=== PATIENT | female | born 1980 | race Caucasian/White ===

== ENCOUNTER 2019-02-27 06:02 | Day surgery (SDC) | payer MEDICAID ==
[2019-02-27 06:56] LABS: BASOPHILS # (AUTO) 0.1 10^3/uL (0.0-0.1); EOSINOPHILS # (AUTO) 0.1 10^3/uL (0.0-0.7); EOSINOPHILS % (AUTO) 2.7 %; HGB - HEMOGLOBIN 12.4 g/dL (12.0-16.0); LYMPHOCYTES % (AUTO) 41.8 %; MEAN CORPUSCULAR HEMOGLOBIN 30.8 pg (27.0-31.0); MEAN CORPUSCULAR HGB CONC 33.6 g/dL (32.0-36.0); MEAN CORPUSCULAR VOLUME 91.8 fL (81.0-99.0); MEAN PLATELET VOLUME 9.5 fL (7.9-10.8); MONOCYTES # (AUTO) 0.4 10^3/uL (0.0-1.0); MONOCYTES % (AUTO) 8.8 %; NEUTROPHILS # (AUTO) 2.2 10^3/uL (1.5-6.6); NEUTROPHILS % (AUTO) 45.5 %; PLT - PLATELET COUNT 285 10^3/uL (130-450); RED BLOOD COUNT 4.02 10^6/uL (4.20-5.40); WHITE BLOOD COUNT 4.9 x10^3/uL (4.8-10.8)
[2019-02-27] MEDS ORDERED: LACTATED RINGERS 1,000 ML IV ONE ×2 (06:57→08:52)
[2019-02-27 07:00] LABS: HCG UR QUAL NEGATIVE
--- NOTE | 2019-02-27 07:10 | ANESTHESIA ---
Pre-Anesthesia VS, & Labs - Diagnosis desires sterilization - Procedure bilateral salpingectomy Vital Signs: Temp Pulse Resp BP Pulse Ox 36.6 C 70 16 130/90 H 99 02/27/19 06:35 02/27/19 06:35 02/27/19 06:35 02/27/19 06:35 02/27/19 06:35 Height 5 ft 3 in Weight (kg) 90.8 kg - NPO >8 hours - Is Patient ?: No - Lab Results Current Lab Results: Laboratory Tests 02/27/19 06:52: WBC 4.9, RBC 4.02 L, Hgb 12.4, Hct 36.9 L, MCV 91.8, MCH 30.8, MCHC 33.6, RDW 12.0, Plt Count 285, MPV 9.5, Neut # (Auto) 2.2, Lymph # (Auto) 2.0, Converse # (Auto) 0.4, Eos # (Auto) 0.1, Baso # (Auto) 0.1, Absolute Nucleated RBC 0.00, Nucleated RBC % 0.0 Lab results reviewed: Yes Fish Bones: 02/27/19 06:52 Home Medications and Allergies Home Medications: Ambulatory Orders No Known Home Medications 02/19/19 No Known Home Medications 02/19/19 Allergies/Adverse Reactions: Allergies Allergy/AdvReac Type Severity Reaction Status Date / Time No Known Drug Allergies Allergy Verified 01/07/14 11:19 Anes History & Medical History - Anesthetic History Anesthesia Complications: reports: No previous complications Family history of Anesthesia Complications: Denies Family history of Malignant Hyperthermia: Denies - Medical History Cardiovascular: reports: None Pulmonary: reports: None Gastrointestinal: reports: None Urinary: reports: None Musculoskeletal: reports: None Endocrine/Autoimmune: reports: None Skin: reports: None Smoking Status: Never smoker - Surgical History Eyes Ears Nose Throat (EENT): Other Gynecologic: section Exam General: Alert, Oriented x3, Cooperative, No acute distress Dental: WNL Mouth Openin Fingerbreadth Neck Mobility: Normal Mallampati classification: I Thyromental Distance: 4-6 cm Respiratory: Lungs clear, Normal breath sounds, No respiratory distress, No accessory muscle use Cardiovascular: Regular rate, Normal S1, Normal S2, No murmurs Plan Anesthesia Type: General Consent for Procedure(s) Verified and Reviewed: Yes Code Status: Attempt Resuscitation ASA classification: 1-Healthy patient Is this case an emergency?: No
[2019-02-27] MEDS ORDERED: BUPIVACAINE 0.25%-EPI 1:200000 PF 30 ML VIAL ONE ×2 (07:18→08:37)
[2019-02-27] MEDS ORDERED: HYDROcod/ACETAM 5/325 MG TABLET PO PRN (09:07)
[2019-02-27] MEDS ORDERED: ONDANSETRON 4 MG/2 ML VIAL IVP PRN (09:07)
--- NOTE | 2019-02-27 09:46 | OPERATIVE REPORT ---
DATE OF SERVICE: 02/27/2019 Physician: Bao Delaney DO PREOPERATIVE DIAGNOSIS: Voluntary request for sterilization. POSTOPERATIVE DIAGNOSIS: Voluntary request for sterilization. PROCEDURE: Laparoscopic bilateral salpingectomy. SURGEON: Bao Delaney DO LIVESTOCK BREEDER: None. ANESTHESIA: General anesthetic. ESTIMATED BLOOD LOSS: 10 mL FINDINGS: Liver margins, gallbladder, bilateral fallopian tubes and ovaries were unremarkable. The right fallopian tube and left ample fallopian tube did have some minor adhesions associated with them, but were otherwise unremarkable. The uterus sounded to a depth of 11 cm, but was otherwise unremarkable on laparoscopic examination, as were the anterior and posterior cul-de-sacs. The appendix was normal in color; however, it was adhered to the right abdominal side wall. DESCRIPTION OF PROCEDURE: Patient was taken to the operative suite, placed on the surgical table in supine position. Under general anesthetic, she was prepped and draped in the usual fashion. A timeout took place. Once the timeout had been completed, a weighted speculum was placed in the vaginal vault and the cervix visualized. The bladder had been drained of approximately 400 mL of clear, yellow urine. The uterus then sounded to a depth of 11 cm and the cervix dilated to 8 mm. The HUMI was then advanced through the straightened endocervical canal and the balloon insufflated in the fundus. The single-tooth tenaculum was removed from the anterior lip of the cervix. No signs of bleeding were noted. Hemostasis followed. A weighted speculum was removed from the vaginal vault. The surgeon's gloves were changed. Attention was now placed to the abdomen. Prior to making any abdominal incisions, all areas were anesthetized with 0.25% Marcaine with epinephrine. A 5 mm incision was then made in the infraumbilical fold. Using the Optiport, the 5 mm port was then placed under direct laparoscopic vision as the abdominal wall was elevated. All layers were noted upon entry. The trocar was removed and CO2 applied. Good venous flow and good intra-abdominal pressure was noted. The abdomen was then insufflated with approximately 3 liters of CO2. The suprapubic port was then placed under direct laparoscopic visualization. This, again, was another 5 mm port. A third port was placed about 2 cm cephalad to the anterior iliac spine on the left. Again, this was done under direct laparoscopic visualization and a 5 mm port was used. The probe was then placed and the above findings noted. Laparoscopic photographic documentation took place. The left fallopian tube was then grasped at its fimbriated end and elevated. This was dissected free from the mesosalpinx, using the LigaSure device. This was dissected to the level of the cornu. The tube was transected at the cornu and then brought out through the suprapubic port, and sent to Pathology for evaluation. The right fallopian tube was now addressed and grasped at its fimbriated end with a grasper and elevated. This tube was also dissected free from the ovary and from the mesosalpinx, using the LigaSure device. It was dissected to the level of the cornu. This tube was then transected at the cornu and then removed through the suprapubic port and sent to Pathology for evaluation. All pedicles were now visualized and found to be intact. The CO2 was allowed to escape from the abdomen. The suprapubic and left lateral port were then removed. The umbilical port was removed under direct laparoscopic visualization. The incisions were closed with 4-0 Monocryl suture and hemostasis followed. Steri-Strips were placed and sterile dressings were placed. The HUMI was then removed from the uterus and hemostasis followed. The patient was now taken to the recovery room in stable condition. TD: 02/27/2019 09:21 SUSANNE
[2019-02-27 10:19] VITALS: BP 119/71
[2019-02-27] MEDS ORDERED: IBUPROFEN 600 MG TABLET PO SCH (12:00)
== END 2019-02-27 06:03 | disposition home or self-care (01) ==
LOC: SDS 06:02
PROVIDERS: ATTEND Obstetrics & Gynecology
PROC: 0UT74ZZ Resection of Bilateral Fallopian Tubes, Percutaneous Endoscopic Approach (ICD-10-PCS; principal; 2019-02-27 07:30)
DX: Z30.2 Encounter for sterilization (principal); K38.8 Other specified diseases of appendix; Z80.3 Family history of malignant neoplasm of breast
CPT/HCPCS: 58661; 81025; 85025; J7120

== ENCOUNTER 2021-03-22 08:00 | Outpatient (CLI) | payer MEDICAID ==
[2021-03-22 18:08] LABS: BASOPHILS % (AUTO) 0.3 %; EOSINOPHILS % (AUTO) 0.4 %; HCT - HEMATOCRIT 39.5 % (37.0-47.0); HGB - HEMOGLOBIN 12.8 g/dL (12.0-16.0); LYMPHOCYTES % (AUTO) 29.8 %; MEAN CORPUSCULAR HEMOGLOBIN 30.3 pg (27.0-31.0); MEAN CORPUSCULAR HGB CONC 32.4 g/dL (32.0-36.0); MEAN CORPUSCULAR VOLUME 93.6 fL (81.0-99.0); MEAN PLATELET VOLUME 9.9 fL (7.9-10.8); MONOCYTES # (AUTO) 0.4 10^3/uL (0.0-1.0); NEUTROPHILS # (AUTO) 4.2 10^3/uL (1.5-6.6); NEUTROPHILS % (AUTO) 63.1 %; PLT - PLATELET COUNT 322 10^3/uL (130-450); RED BLOOD COUNT 4.22 10^6/uL (4.20-5.40); RED CELL DISTRIBUTION WIDTH 12.5 % (12.0-15.0); WHITE BLOOD COUNT 6.7 x10^3/uL (4.8-10.8)
[2021-03-22 18:11] LABS: CALCIUM 9.3 mg/dL (8.5-10.3); CREATININE 0.6 mg/dL (0.4-1.0); POTASSIUM 3.6 mmol/L (3.5-5.0)
== END 2021-03-22 23:59 | disposition home or self-care (01) ==
LOC: LAB.N 08:00
PROVIDERS: ATTEND Physician Assistant Medical
DX: R42 Dizziness and giddiness (principal); Z20.822 Contact with and (suspected) exposure to COVID-19
CPT/HCPCS: 36415; 80048; 84443; 85025